=== PATIENT | male | born 1985 | race Caucasian/White ===

== ENCOUNTER 2018-08-13 07:06 | Day surgery (SDC) | payer MEDICAID ==
[~2018-08-13] VITALS: Ht 177.8 cm; Wt 65.8 kg
[2018-08-13 08:29] VITALS: BP 105/66; Ht 177.8 cm; Wt 65.8 kg
--- NOTE | 2018-08-13 11:24 | OP ---
PATIENT NAME: PRANAY GRIFFITH MEDICAL RECORD: [id number] :87 LOCATION:[facility] ADMISSION DATE: SURGEON: ARMANDO TOM MD DATE OF OPERATION: 08/13/2018 SURGEON: Armando Tom MD ANESTHESIA: General anesthesia by Clarke Jacobsen MD DIAGNOSIS: Male sterilization. PROCEDURE: Vasectomy. SPECIMENS: Right vas and left vas deferens. BLOOD LOSS: Minimal. CLINICAL HISTORY: This is a 32-year-old male, who has been for 10 years and they have 3 children. He does not want to have any more children. He is otherwise in good health. He has no medication allergies. 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 DESCRIPTION OF PROCEDURE: The patient was given induction of general anesthesia. He was in supine position and he was prepped and draped. The right vas deferens was identified and isolated under the scrotal skin. Towel clips were used to isolate the vas deferens through the scrotal skin. The intervening segment between the towel clips was anesthetized with 1% lidocaine containing epinephrine. A 1 cm long incision was then made. The vas deferens was then brought out using a mosquito clamp. The tunics were stripped and then both the proximal and distal end of the segment were clamped using a hemostat. The intervening segment was cut out using a #15-blade. The ends of the vas deferens were cauterized using the Bovie. Each of these ends was ligated using a 2-0 Prolene tie. The 2 ends were then put back into the hemiscrotum and the hemiscrotum was closed using simple interrupted 4-0 Vicryl. The same procedure was done on the left side. On the left side, there seems to be more vascularity as we encountered some bleeding from our towel clip placement. At the end of the procedure, there was no active bleeding from either side. Fluffs and mesh panties were given to the patient. I will see the patient in followup in 2 weeks' time. TRANSINT:[id number] Voice Confirmation ID: [id number] DOCUMENT ID: [id number] ARMANDO TOM MD at 1124 CC: [id number] DICTATION DATE: 08/13/[address] TEST EXAMINER: 08/13/18 [address] [place] [id number]
== END 2018-08-13 12:50 | disposition home or self-care (01) ==
LOC: D.OPS 07:06 → D.PAN 10:45 → D.OPS 10:45
PROVIDERS: ATTEND Urology
DX: Z30.2 Encounter for sterilization (principal)